=== PATIENT | male | born 1980 | race African-American/Black ===

== ENCOUNTER 2020-08-27 19:43 | Emergency (ER) | payer OTHER ==
[~2020-08-27] VITALS: Ht 170.2 cm; Wt 63.5 kg
[~2020-08-27 19:43] MED LIST: NAPROSYN500 MG PO; NORCO 5-325 TA1 EACH PO
[2020-08-27 20:30] LABS: URINE BILIRUBIN NEGATIVE (Negative); URINE BLOOD TRACE (Negative); URINE CLARITY CLEAR; URINE COLOR YELLOW; URINE GLUCOSE-RANDOM* NEGATIVE (Negative); URINE KETONES NEGATIVE (Negative); URINE LEUKOCYTES-REFLEX NEGATIVE (Negative); URINE NITRITE-REFLEX NEGATIVE (Negative); URINE PROTEIN (DIPSTICK) NEGATIVE (Negative); URINE SPECIFIC GRAVITY >= 1.030 (1.005-1.035); URINE UROBILINOGEN 0.2 E.U./dl (0.2-1.0)
[2020-08-27 21:26] VITALS: BP 136/73
== END 2020-08-27 21:26 | disposition home or self-care (01) ==
LOC: ER 19:43
PROVIDERS: Nurse Practitioner
DX: Z20.2 Contact with and (suspected) exposure to infections with a predominantly sexual mode of transmission (principal); R10.30 Lower abdominal pain, unspecified; R36.9 Urethral discharge, unspecified